=== PATIENT | female | born 1945 | race Caucasian/White ===

== ENCOUNTER → 2019-06-26 | Outpatient (CLI) | payer MEDICARE | END | disposition home or self-care (01) | LOC: CFH 12:30 | PROVIDERS: ATTEND Family Medicine | DX: N63.11 Unspecified lump in the right breast, upper outer quadrant (principal) | CPT/HCPCS: 76642; 77065 ==

== ENCOUNTER 2019-07-05 08:31 | Outpatient (CLI) | payer MEDICARE ==
[2019-07-05] MEDS ORDERED: SODIUM BICARBONATE 4.2%, 5ML ONE (09:00)
[2019-07-05] MEDS ORDERED: LIDOCAINE 1%-EPI 1:100K, 20ML ONE (09:00)
[2019-07-05] MEDS ORDERED: LIDOCAINE 1%, 20ML ONE (09:00)
== END 2019-07-05 23:59 | disposition home or self-care (01) ==
LOC: CFH 08:31
PROVIDERS: ATTEND Family Medicine
DX: N63.11 Unspecified lump in the right breast, upper outer quadrant (principal); D24.1 Benign neoplasm of right breast
CPT/HCPCS: 19083; 19084; 77065; 88305; J3490